=== PATIENT | female | born 1970 | race Caucasian/White ===

== ENCOUNTER → 2017-11-13 13:59 | Outpatient (CLI) | payer MEDICAID, SELFPAY ==
--- NOTE | 2017-11-13 14:03 | XR_ITS ---
XR foot LT min 3V Ordering Physician: Cheryl Molina Patient Age: 47 years: Female HISTORY: ITS.REASON: fall Fell in September, with persistent pain swelling at left foot. Fr TECHNIQUE: 3 view left foot COMPARISON : September 2012 left foot study, with Fiberglas splint in place. Also previous study from August 2012 utilized FINDINGS No acute fracture or findings at the left foot seen today. . Toes, metatarsals and tarsals intact. Adequate plantar arch Minimal spurring at insertion of the Achilles tendon with only scant early developing at the plantar aspect calcaneus IMPRESSION: No acute fracture left foot . No dislocation/subluxation..
--- NOTE | 2017-11-13 14:03 | XR_ITS ---
XR clavicle LT, XR shoulder LT min 2V Ordering Physician: Cheryl Molina Patient Age: 47 years: Female HISTORY: ITS.REASON: fall TECHNIQUE: Left clavicle 2 views; left shoulder 3 views COMPARISON :Plain films 2017 LEFT CLAVICLE The left clavicle is intact with no fracture evident. Overall grossly Satisfactory relationships at the medial clavicle and sternoclavicular joint but no displacement. No clavicular fracture. Mild degenerative changes AC joint. LEFT SHOULDER no fracture nor dislocation. The glenohumeral joint is intact with head and neck intact. Scant degenerative changes AC joint. There is some mild subchondral cystic changes towards the tip of the distal clavicle reflecting such. Lung apex and left upper ribs clear. IMPRESSION: No fracture or displacement at Left Shoulder NOR Left Clavicle..
== END ==
PROVIDERS: PCP Emergency Medicine; Visit Provider Nurse Practitioner Family
DX: M25.512 Pain in left shoulder (principal); M79.672 Pain in left foot; W19.XXXA Unspecified fall, initial encounter
CPT/HCPCS: 73000; 73030; 73630

== ENCOUNTER → 2017-12-13 15:28 | Outpatient (POV) | payer MEDICAID, SELFPAY | PROVIDERS: Family Provider Emergency Medicine; PCP Emergency Medicine | DX: Z00.00 Encounter for general adult medical examination without abnormal findings (principal) ==

== ENCOUNTER → 2017-12-25 13:37 | Outpatient (POV) | payer MEDICAID, SELFPAY ==
[2017-12-25 13:45] VITALS: BP 141/80; PULSE 88; RESP 18; TEMP 36.6; O2SAT 99; BMI 26.6
--- NOTE | 2017-12-25 13:55 | HMH.PAINSOAP ---
[facility] Pain Management SOAP Note Subjective:: Patient is a pleasant 47-year-old white female who presents today to discuss her back pain. Patient has had lumbar epidural steroid injections in the past with good relief. Patient was going to get a left SI joint injection however we were unable to do that. Patient is still interested in getting SI joint injections. Patient is currently taking Flexeril 10 mg 1 p.o. 3 times daily. Patient would like to have an evaluation of potentially MS. Patient states she has a strong family history of this. Patient symptoms include falls, blurred vision at times, tremors, and muscle spasms. ROS General: no recent weight change, no fever, no sleep disturbances Respiratory: no cough, no shortness of air, no recurring pulmonary infections Cardiovascular/Peripheral Vascular: No chest pain, No palpitations, no edema, no shortness of breath. Gastrointestinal: no incontinence, normal bowel movements reported Genitourinary: no incontinence Musculoskeletal: Back pain, bilateral SI joint pain Psychiatric: normal mood/ affect Neurological: Weakness in bilateral lower extremities at times, [denies balance issues] Objective:: Physical Exam General: Alert and oriented x3, no acute distress, pleasant and cooperative, [on room air] Lungs: Resps E/U, Symmetrical chest expansion, Eyes: PERRL Musculoskeletal: Flexion and extension of lumbar spine somewhat guarded secondary to pain, deep tendon reflexes normal, strength in upper and lower extremities [5/5], slightly antalgic gait noted, positive Joe's bilaterally, extreme point tenderness over bilateral SI joints Neurological: speech clear, family literacy coordinator equal, no gross sensory deficits Assessment:: Sacroiliitis, degenerative disc disease of the lumbar spine Plan:: We will plan bilateral SI joint injections. I believe given the efficacy of previous injections that this would be helpful. We will also find someone to evaluate her for potential MS. Patient has tried and failed physical therapy, anti-inflammatories, medications. Patient is also on Flexeril 10 mg 1 p.o. 3 times daily. I will follow-up with this patient after her injections. This note was dictated using voice recognition software and may contain errors or omissions
--- NOTE | 2017-12-25 13:58 | P.CONS_ITS ---
[facility] Pain Management SOAP Note Subjective:: Patient is a pleasant 47-year-old white female who presents today to discuss her back pain. Patient has had lumbar epidural steroid injections in the past with good relief. Patient was going to get a left SI joint injection however we were unable to do that. Patient is still interested in getting SI joint injections. Patient is currently taking Flexeril 10 mg 1 p.o. 3 times daily. Patient would like to have an evaluation of potentially MS. Patient states she has a strong family history of this. Patient symptoms include falls, blurred vision at times, tremors, and muscle spasms. ROS General: no recent weight change, no fever, no sleep disturbances Respiratory: no cough, no shortness of air, no recurring pulmonary infections Cardiovascular/Peripheral Vascular: No chest pain, No palpitations, no edema, no shortness of breath. Gastrointestinal: no incontinence, normal bowel movements reported Genitourinary: no incontinence Musculoskeletal: Back pain, bilateral SI joint pain Psychiatric: normal mood/ affect Neurological: Weakness in bilateral lower extremities at times, [denies balance issues] Objective:: Physical Exam General: Alert and oriented x3, no acute distress, pleasant and cooperative, [ on room air] Lungs: Resps E/U, Symmetrical chest expansion, Eyes: PERRL Musculoskeletal: Flexion and extension of lumbar spine somewhat guarded secondary to pain, deep tendon reflexes normal, strength in upper and lower extremities [5/5], slightly antalgic gait noted, positive Joe's bilaterally, extreme point tenderness over bilateral SI joints Neurological: speech clear, cogeneration technician equal, no gross sensory deficits Assessment:: Sacroiliitis, degenerative disc disease of the lumbar spine Plan:: We will plan bilateral SI joint injections. I believe given the efficacy of previous injections that this would be helpful. We will also find someone to evaluate her for potential MS. Patient has tried and failed physical therapy, anti-inflammatories, medications. Patient is also on Flexeril 10 mg 1 p.o. 3 times daily. I will follow-up with this patient after her injections. This note was dictated using voice recognition software and may contain errors or omissions
--- NOTE | 2017-12-26 13:08 | PC.PHONENOTE ---
12/25/17-called in Rx for Flexeril 10mg TID with 1 refill to pt's pharmacy
== END ==
PROVIDERS: Family Provider Emergency Medicine; PCP Emergency Medicine; Visit Provider Clinical Nurse Specialist Family Health
DX: M46.1 Sacroiliitis, not elsewhere classified (principal)
CPT/HCPCS: 99212

== ENCOUNTER 2017-12-28 15:00 | Outpatient (RCR) | payer MEDICAID, SELFPAY ==
--- NOTE | 2017-12-01 14:42 | HMH.PTOPEV ---
Rehab Outpatient Evaluation Rehab OP Evaluation Start: 12/01/17 14:27 Freq: Status: Active Protocol: Document 12/01/17 14:27 RMANDIL (Rec: 12[facility]01/17 14:[id number] Electronically Signed By Agueda Grimes OT 12/01/17 14:27 Outpatient Therapy Subjective History Subjective History Pt is a 47 year old female who reports to therapy for initial evaluation to Left shoulder. Pt reports she fell off of her counter top while she was taking down nadeem lights. Pt landed on her left shoulder and has had pain, decreased AROM, and decreased strength since the accident. After completing the ealuation , pt does demonstrate with a decline in functional ability of Left shoulder such as decreased AROM/Strength. Pt was given HEP of pulleys in flexion/abduction to begin and will continue to be seen twice a week to address these deficits. Chief Complaint Pain Stiff Clicks Symptom Type Ache Throb Sharp Dull Burning Shooting Symptoms Relieved By Nothing Symptoms Aggravated By Physical Activity Lifting Prior Functional Limitations None Current Functional Limitations Reaching Lifting Housework Dressing Driving Sleeping Recreation Activity Symptom Description Constant and Continuous Level of pain today (0-10) 3 Pain scale - at its best (0-10) 3 Pain scale - at its worst (0-10) 10 Shoulder/Elbow Eval Shoulder Objective Measurements Palpation Tenderness tenderness shoulder exam standard left tenderness over the bicipital tendon left shoulder exam standard tenderness over the SA bursa shoulder left exam standard Shoulder Palpation Findings Tenderness Posture Shoulder Posture Sitting Position (L) Rounded (R) Rounded
== END 2017-12-28 15:01 | disposition home or self-care (01) ==
LOC: OT 15:00
PROVIDERS: Family Provider Emergency Medicine; PCP Emergency Medicine; Visit Provider Emergency Medicine
DX: M25.512 Pain in left shoulder (principal)
CPT/HCPCS: 97014; 97110; 97140; 97165; G0283

== ENCOUNTER → 2018-01-02 16:03 | Outpatient (REF) | payer MEDICAID, SELFPAY ==
[2018-01-02 18:45] LABS: Basophils # 0.1 K/mm3 (0-0.2); Basophils % 0.6 % (0.1-2.0); Eosinophils # 0.2 K/mm3 (0.0-0.4); Eosinophils % 1.9 % (0.1-12.0); Hematocrit 48.9 % (37.0-47.0); Hemoglobin 15.7 g/dL (12.2-16.2); Lymphocytes # 2.4 K/mm3 (0.7-4.5); Lymphocytes % 21.3 K/mm3 (10-50); Mean Corpuscular HGB Conc 32.2 g/dL (31.8-35.4); Mean Corpuscular Hemoglobin 32.2 pg (27.0-31.2); Mean Platelet Volume 9.4 fl (7.4-10.4); Monocytes # 0.4 K/mm3 (0.1-1.0); Monocytes % 3.5 % (1.7-9.3); Neutrophils # 8.3 K/mm3 (1.8-7.8); Neutrophils % 72.8 % (37.0-80.0); Platelet Count 241 K/mm3 (142-424); Red Blood Count 4.89 M/mm3 (4.20-5.40); Red Cell Distribution Width 13.4 % (11.5-17.5); White Blood Count 11.4 K/mm3 (4.8-10.8)
[2018-01-02 19:36] LABS: Hemoglobin A1C 5.9 % (0.0-7.0)
[2018-01-02 19:37] LABS: Amphetamine/Metha Screen,Urine Negative ng/mL (<1000); Barbiturates Screen,Urine Negative ng/mL (<200); Benzodiazepines Screen,Urine Negative ng/mL (200); Cannabinoid Screen,Urine Negative ng/mL (<50); Cocaine Screen,Urine Negative ng/g (<300); Methadone Screen,Urine Negative ng/mL (<300); Opiate Screen,Urine Negative ng/mL (<300); Phencyclidine Screen,Urine Negative ng/mL (<25)
[2018-01-02 19:46] LABS: Alanine Aminotransferase 19 U/L (12-78); Albumin Level 4.7 gm/dL (3.4-5.0); Albumin/Globulin Ratio 1.5 (1.1-1.8); Alkaline Phosphatase 84 U/L (46-116); Anion Gap 17.1 mEq/L (5-15); Aspartate Amino Transferase 15 U/L (15-37); Bilirubin,Total 0.6 mg/dL (0.2-1.0); Blood Urea Nitrogen 17 mg/dL (7-18); Calcium 9.5 mg/dL (8.5-10.1); Carbon Dioxide 26 mmol/L (21.0-32.0); Chloride 98 mmol/L (98-107); Chol/HDL Ratio 7.1 (1-3.5); Cholesterol 228 mg/dL (140-200); Creatinine,Serum 1.06 mg/dL (0.55-1.02); Estimated Glomerular Filt Rate 56 ml/min (>60); GFR (African American) 68 ML/MIN (>60); Globulin 3.2 gm/dl (1.3-3.2); Glucose 84 mg/dL (74-106); HDL Cholesterol 32 mg/dL (29-89); Potassium 4.1 mmoL/L (3.5-5.1); Sodium 137 mmol/L (136-145); T4 (Thyroxine) 8.2 ug/dl (4.7-13.3); Thyroid Stimulating Hormone 2.37 uIU/ml (0.358-3.740); Total Protein,Serum 7.9 gm/dL (6.4-8.2)
[2018-01-02 19:48] LABS: Triglycerides 408 mg/dL (30-200)
[2018-01-05 10:43] LABS: Vitamin D 25 Hydroxy 21.1 ng/mL (30.0-100.0)
[2018-01-05 10:45] LABS: Microalbumin, Urine <3.0 ug/mL (Not Estab.)
== END ==
LOC: LAB 16:03
PROVIDERS: Visit Provider Physician Assistant
DX: E11.9 Type 2 diabetes mellitus without complications (principal); E78.5 Hyperlipidemia, unspecified; Z79.899 Other long term (current) drug therapy
CPT/HCPCS: 80053; 80061; 80305; 82043; 82652; 83036; 84436; 84443; 85025

== ENCOUNTER → 2018-01-19 09:13 | Outpatient (CLI) | payer MEDICAID, SELFPAY ==
--- NOTE | 2018-01-19 09:15 | MR_ITS ---
MR shoulder LT wo con HISTORY: Left shoulder pain with limited range of motion ITS.REASON: Pain left shoulder following injury 09/19/17 ORDERING PHYSICIAN: LESA Degroot PATIENT AGE: 47 years COMPARISON: 11/13/2017 TECHNIQUE: Standard multiplanar multiecho sequences are performed without contrast. FINDINGS: There are prominent hypertrophic changes involving the acromioclavicular joint with subacromial stenosis. Increased T2 signal involves the distal aspect of the acromion and the clavicle consistent with underlying bone marrow edema. There is impingement upon the superior aspect of the musculotendinous junction of the supraspinatus muscle and tendon with indentation of that structure by the acromioclavicular arthropathy. There is slight increased T2 signal with mild thickening of the supraspinatus tendon consistent with tendinopathy/tendinosis. No obvious tear of the supraspinatus tendon. The infraspinatus tendon, subscapularis, and teres minor tendons appear intact. The bicipital tendon is in place. No obvious labral tear. No joint effusion IMPRESSION: 1. No evidence of rotator cuff tear. 2. Acromioclavicular arthropathy with subacromial stenosis within pain upon the musculotendinous junction of the supraspinatus muscle and tendon along with tendinopathy/tendinosis of the supraspinatus tendon. 3. Bone marrow edema of the distal aspect of the acromium and the distal clavicle
== END ==
PROVIDERS: Family Provider Emergency Medicine; PCP Emergency Medicine; Visit Provider Physician Assistant
DX: M25.512 Pain in left shoulder (principal)
CPT/HCPCS: 73221

== ENCOUNTER → 2018-02-05 10:18 | Outpatient (POV) | payer MEDICAID, SELFPAY ==
[2018-02-05 10:24] VITALS: BP 150/84; PULSE 100; RESP 18; O2SAT 98; BMI 26.2
--- NOTE | 2018-02-05 11:27 | HMH.PAINSOAP ---
[facility] Pain Management SOAP Note Subjective:: Patient is a pleasant 47-year-old white female who presents today for follow-up after SI joint injections. Patient states she is doing very well in regards to her SI joint pain. However she did bend over and grab a broom and have one instance of sharp shooting pain in her back. She states that she has not had any electricity in her house for over a month now. Patient is interested in nerve stimulation and would like to discuss this. Patient does have a neurology appointment and an orthopedic appointment in the next month. I gave the patient information on neuro stimulation and we will address this at her 2 month follow-up. ROS General: no recent weight change, no fever, no sleep disturbances Respiratory: no cough, no shortness of air, no recurring pulmonary infections Cardiovascular/Peripheral Vascular: No chest pain, No palpitations, no edema, no shortness of breath. Gastrointestinal: no incontinence, normal bowel movements reported Genitourinary: no incontinence Musculoskeletal: Back pain, bilateral SI joint pain Psychiatric: normal mood/ affect Neurological: [denies weakness in extremities], [denies balance issues] Objective:: Physical Exam General: Alert and oriented x3, no acute distress, pleasant and cooperative, [on room air] Lungs: Resps E/U, Symmetrical chest expansion, Eyes: PERRL Musculoskeletal: Flexion and extension of lumbar spine somewhat guarded secondary to pain, deep tendon reflexes normal, strength in upper and lower extremities [5/5], slightly antalgic gait noted Neurological: speech clear, pulper equal, no gross sensory deficits Assessment:: Sacroiliitis, degenerative disc disease of the lumbar spine Plan:: We will follow-up with this patient in 2 months and gave her information in regards to nerve stimulation. Patient is to write down any questions she may have. We will address this at her next visit. Patient is going to be seeing neurology and orthopedics prior to her next visit. We will reassess her after those visits. This note was dictated using voice recognition software and may contain errors or omissions
--- NOTE | 2018-02-05 11:32 | P.CONS_ITS ---
[facility] Pain Management SOAP Note Subjective:: Patient is a pleasant 47-year-old white female who presents today for follow-up after SI joint injections. Patient states she is doing very well in regards to her SI joint pain. However she did bend over and grab a broom and have one instance of sharp shooting pain in her back. She states that she has not had any electricity in her house for over a month now. Patient is interested in nerve stimulation and would like to discuss this. Patient does have a neurology appointment and an orthopedic appointment in the next month. I gave the patient information on neuro stimulation and we will address this at her 2 month follow-up. ROS General: no recent weight change, no fever, no sleep disturbances Respiratory: no cough, no shortness of air, no recurring pulmonary infections Cardiovascular/Peripheral Vascular: No chest pain, No palpitations, no edema, no shortness of breath. Gastrointestinal: no incontinence, normal bowel movements reported Genitourinary: no incontinence Musculoskeletal: Back pain, bilateral SI joint pain Psychiatric: normal mood/ affect Neurological: [denies weakness in extremities], [denies balance issues] Objective:: Physical Exam General: Alert and oriented x3, no acute distress, pleasant and cooperative, [ on room air] Lungs: Resps E/U, Symmetrical chest expansion, Eyes: PERRL Musculoskeletal: Flexion and extension of lumbar spine somewhat guarded secondary to pain, deep tendon reflexes normal, strength in upper and lower extremities [5/5], slightly antalgic gait noted Neurological: speech clear, arborist equal, no gross sensory deficits Assessment:: Sacroiliitis, degenerative disc disease of the lumbar spine Plan:: We will follow-up with this patient in 2 months and gave her information in regards to nerve stimulation. Patient is to write down any questions she may have. We will address this at her next visit. Patient is going to be seeing neurology and orthopedics prior to her next visit. We will reassess her after those visits. This note was dictated using voice recognition software and may contain errors or omissions
== END ==
PROVIDERS: Family Provider Emergency Medicine; PCP Emergency Medicine; Visit Provider Clinical Nurse Specialist Family Health
DX: M46.1 Sacroiliitis, not elsewhere classified (principal)
CPT/HCPCS: 99212

== ENCOUNTER → 2018-03-22 12:47 | Outpatient (CLI) | payer MEDICAID, SELFPAY ==
--- NOTE | 2018-03-22 12:50 | XR_ITS ---
XR shoulder RT min 2V HISTORY: ITS.REASON: rt shoulder pain ORDERING PHYSICIAN: Parish Golden MD PATIENT AGE: 47 years Comparison: None FINDINGS: No fracture or dislocation. No lytic or blastic change. There is normal mineralization. The joint spaces are well-preserved. No significant degenerative/arthritic changes. No erosive changes evident. IMPRESSION: Negative, no acute finding
== END ==
PROVIDERS: PCP Emergency Medicine; Visit Provider Orthopaedic Surgery
DX: M25.511 Pain in right shoulder (principal)
CPT/HCPCS: 73030

== ENCOUNTER → 2018-03-26 12:16 | Outpatient (CLI) | payer MEDICAID, SELFPAY ==
[2018-03-26 12:33] LABS: Blood Urea Nitrogen 18 mg/dL (7-18); Creatinine,Serum 1.33 mg/dL (0.55-1.02); Estimated Glomerular Filt Rate 43 ml/min (>60); GFR (African American) 52 ML/MIN (>60)
--- NOTE | 2018-03-26 12:40 | MR_ITS ---
MR head/brain wo con HISTORY: Severe headache ITS.REASON: migraine, movement disorder ORDERING PHYSICIAN: Manuela Dobbins MD PATIENT AGE: 47 years Comparison: 07/18/2016 TECHNIQUE: Standard multiplanar multiecho sequences are performed without contrast. FINDINGS: No midline shift, mass effect, intracranial hemorrhage, or hydrocephalus is evident. No evidence of acute infarction. The cerebellopontine angles, cerebellum, and brainstem have an unremarkable appearance. No pituitary mass. The optic chiasm is unremarkable. There is mild cerebellar tonsillar ectopia of 3 to 4 mm. There are scant periventricular and subcortical T2 white matter hyperintensities in the frontal lobes which are nonspecific and could be seen with ischemic gliotic foci or migraine headache. These are not significantly changed. Hippocampal structures are unremarkable in the temporal heart is are symmetric No large aneurysms are evident. Smaller aneurysms cannot be seen with this technique and may be better evaluated with cranial MRI if clinically warranted. There is a small amount fluid within left mastoid sinus. There is moderate rightward nasal septal deviation. IMPRESSION: 1. No acute intracranial findings with no significant change from 07/18/2016. 2. There are scant periventricular T2 white matter hyperintensities. These are nonspecific and could be seen with ischemic gliotic change or may also be seen with migraine headache. Demyelinating process felt to be less likely due to the imaging characteristics. 3. Minimal cerebellar tonsillar ectopia
[2018-03-27 15:23] LABS: Folate 6.1 ng/mL (>3.0); Vitamin B12 262 pg/mL (232-1245)
== END ==
PROVIDERS: Family Provider Emergency Medicine; PCP Emergency Medicine; Visit Provider Specialist
DX: G43.019 Migraine without aura, intractable, without status migrainosus (principal); G25.9 Extrapyramidal and movement disorder, unspecified; G43.709 Chronic migraine without aura, not intractable, without status migrainosus; G47.33 Obstructive sleep apnea (adult) (pediatric)
CPT/HCPCS: 36415; 70551; 82565; 82607; 82746; 84520

== ENCOUNTER → 2018-04-16 15:12 | Outpatient (POV) | payer MEDICAID, SELFPAY ==
[2018-04-16 15:32] VITALS: BP 154/87; PULSE 113; RESP 18; O2SAT 98; BMI 26.5
--- NOTE | 2018-04-16 15:50 | HMH.PAINSOAP ---
[facility] Pain Management SOAP Note Subjective:: Patient is a pleasant 47-year-old white female who presents today for follow-up. At last visit patient and I discussed neuro stimulation. Patient is interested in this. Patient has not had a recent MRI I believe that that would be beneficial. Patient is having increased leg pain. Patient rates her pain a 6 out of 10 today. Mostly in her low back and down her legs. I answered the patient's questions in regards to neuro stimulation. Patient is going to neurology for her migraines. ROS General: no recent weight change, no fever, no sleep disturbances Respiratory: no cough, no shortness of air, no recurring pulmonary infections Cardiovascular/Peripheral Vascular: No chest pain, No palpitations, no edema, no shortness of breath. Gastrointestinal: no incontinence, normal bowel movements reported Genitourinary: no incontinence Musculoskeletal: Back pain leg pain Psychiatric: normal mood/ affect Neurological: [denies weakness in extremities], [denies balance issues] Objective:: Physical Exam General: Alert and oriented x3, no acute distress, pleasant and cooperative, [on room air] Lungs: Resps E/U, Symmetrical chest expansion, Eyes: PERRL Musculoskeletal: Flexion and extension of lumbar spine somewhat guarded secondary to pain, deep tendon reflexes normal, strength in upper and lower extremities [5/5], [abnormal gait noted] Neurological: speech clear, supervisor burling and joining equal, no gross sensory deficits Assessment:: Degenerative disc disease of the lumbar spine with lumbar radiculopathy Plan:: We will order an MRI of the lumbar spine to determine any worsening pathology. The patient is going to continue to think about neuro stimulation I do believe that it would be beneficial for her pain management. I will follow-up with the patient after her MRI. This note was dictated using voice recognition software and may contain errors or omissions
== END ==
PROVIDERS: Family Provider Emergency Medicine; PCP Emergency Medicine; Visit Provider Clinical Nurse Specialist Family Health
DX: M51.16 Intervertebral disc disorders with radiculopathy, lumbar region (principal)
CPT/HCPCS: 99212

== ENCOUNTER → 2018-04-27 10:45 | Outpatient (REF) | payer MEDICAID, SELFPAY ==
[2018-04-27 14:07] LABS: Amphetamine/Metha Screen,Urine Negative ng/mL (<1000); Barbiturates Screen,Urine Negative ng/mL (<200); Benzodiazepines Screen,Urine Positive ng/mL (<200); Cannabinoid Screen,Urine Negative ng/mL (<50); Cocaine Screen,Urine Negative ng/mL (<300); Methadone Screen,Urine Negative ng/mL (<300); Opiate Screen,Urine Negative ng/mL (<300); Phencyclidine Screen,Urine Negative ng/mL (<25)
== END ==
LOC: LAB 10:45
PROVIDERS: Visit Provider Nurse Practitioner Family
DX: Z79.899 Other long term (current) drug therapy (principal)
CPT/HCPCS: 80305

== ENCOUNTER → 2018-12-21 08:12 | Outpatient (CLI) | payer MEDICAID, SELFPAY ==
--- NOTE | 2018-12-21 08:15 | MM_ITS ---
MM Dig screening mamm BI w/CAD ORDERING PHYSICIAN : Charo Grimes PATIENT AGE: 48 years GENDER: Female COMPARISON: June 20172015 INDICATION: ITS.REASON: SCREENING TECHNIQUE: Standard CC and MLO images were obtained. R2 CAD reviewed. FINDINGS: Low-density breastGeneralized fatty replacement. No densities or areas of significant concern. No suspicious calcifications. Bilateral follow-up in one year IMPRESSION: ========= Stable negative bilateral mammogram Low density breast with generalized fatty replacement BI-RADS Category: 1 Negative RECOMMENDED FOLLOW-UP: 1YR 1 YEAR FOLLOW-UP (A letter has been sent to the patient regarding results of the study.)
[2018-12-22 18:11] LABS: Estradiol 48.3 pg/mL (.); FSH 35.3 mIU/mL (.); LH 33.3 mIU/mL (.)
== END ==
PROVIDERS: Nurse Practitioner Obstetrics & Gynecology; PCP Nurse Practitioner Family; Visit Provider Nurse Practitioner Family
DX: Z12.31 Encounter for screening mammogram for malignant neoplasm of breast (principal)
CPT/HCPCS: 36415; 77067; 82670; 83001; 83002

== ENCOUNTER → 2018-12-21 10:45 | Outpatient (CLI) | payer MEDICAID, SELFPAY | PROVIDERS: Visit Provider Nurse Practitioner Obstetrics & Gynecology | DX: N95.0 Postmenopausal bleeding (principal) | CPT/HCPCS: 36415; 82670; 83001; 83002 ==

== ENCOUNTER → 2019-07-02 10:54 | Outpatient (CLI) | payer MEDICAID, SELFPAY ==
--- NOTE | 2019-07-02 11:01 | MR_ITS ---
PROCEDURE: MR LUMBAR SPINE WO CON CLINICAL INDICATION: LUMBAR RADICULOPATHY Left leg pain numbness and tingling COMPARISON: LS5 LUMBAR SPINE 5 VIEWS from 11/19/2014 ABDPELW/O CT ABD PELVIS W/O CONTRAST from 07/20/2015 BRAINWO MR head/brain wo con from 03/26/2018 TECHNIQUE: Standard multiplanar multiecho sequences are performed without contrast. 3-D MIP and myelographic images are also rendered and reviewed FINDINGS: Normal alignment. The spinal cord ends at the L1-L2 level. L1-L2 and L2-L3 have an unremarkable appearance. L3-L4: Minimal facet and ligamentum hypertrophy. L4-5: Minimal facet and ligamentum hypertrophy. L5-S1: There is minimal bulging disc slightly eccentric toward the right with minimal right paracentral disc protrusion without impingement. Incidental note made of a limbus vertebra involving the anterior superior aspect of L5 vertebral body. There is mild facet and ligamentum hypertrophy No extruded herniated disc or canal stenosis. IMPRESSION: 1. Mild degenerative changes with mild facet ligamentum hypertrophy. 2. Minimal bulging disc with minimal right paracentral disc protrusion at L5-S1 without impingement 3. No canal stenosis or extruded herniated disc. Dictated by: Prabhjot Naylor MD 07/04/2019 05:22 Electronically signed by Prabhjot Naylor MD in [place] 07/04/2019 05:22
== END ==
PROVIDERS: PCP Nurse Practitioner Family; Visit Provider Nurse Practitioner Family
DX: M54.16 Radiculopathy, lumbar region (principal)
CPT/HCPCS: 72148; 76376

== ENCOUNTER → 2020-04-23 13:59 | Outpatient (CLI) | payer MEDICAID, SELFPAY | PROVIDERS: PCP Nurse Practitioner Family; Visit Provider Internal Medicine Adolescent Medicine | DX: Z03.818 Encounter for observation for suspected exposure to other biological agents ruled out (principal) | CPT/HCPCS: U0003 ==

== ENCOUNTER → 2020-05-28 12:22 | Outpatient (CLI) | payer MEDICAID, SELFPAY ==
--- NOTE | 2020-05-28 12:23 | MM_ITS ---
PROCEDURE: MM DIG SCREENING MAMM BI W/CAD Referring Doctor: Fitz Logan Patient Age:49Y CLINICAL INDICATION: Routine screening mammogram. No hormones. Ayde menopausal. Family history: Paternal aunt with breast cancer COMPARISON: MG DIG MAMMO BILAT SCREENING from 01/21/2013 MG DMSB DIG MAMM-SCREEN JESSICA from 07/02/2015 MG DMSB DIG MAMM-SCREEN JESSICA from 07/13/2016 MG DMSB DIG MAMM-SCREEN JESSICA W/CAD from 07/13/2017 MG SCBI MM Dig screening mamm BI w/CAD from 12/21/2018 TECHNIQUE: Standard CC and MLO images were obtained. R2 CAD reviewed. Bilateral digital breast tomosynthesis included. FINDINGS: The low-density breast; diffuse fatty replacement No dominant mass or suspicious calcifications either breast. No change since prior studies.. Tomosynthesis images unremarkable bilateral. No new areas of concern Bilateral follow-up 1 year recommended IMPRESSION: Stable breast bilaterally. Low-density breast fatty replacement with no areas concern. Bilateral follow-up 1 year BI-RAD Category: 1 Negative FOLLOW-UP: 1YR 1 Year Follow-up thin tract (A letter has been sent to the patient regarding results of the study.) Dictated by: Robert Watson MD 06/01/2020 13:58 Robert Watson MD in [place] 06/01/2020 13:58
== END ==
PROVIDERS: PCP Nurse Practitioner Family; Visit Provider Nurse Practitioner Obstetrics & Gynecology
DX: Z12.31 Encounter for screening mammogram for malignant neoplasm of breast (principal)
CPT/HCPCS: 77063; 77067

== ENCOUNTER → 2020-06-05 13:47 | Outpatient (CLI) | payer MEDICAID, SELFPAY ==
--- NOTE | 2020-06-05 13:52 | US_ITS ---
PROCEDURE: US TRANSVAGINAL CLINICAL INDICATION: check thickness wellness of her endometrium Abnormal uterine bleeding COMPARISON: US PTV US PELVIS-TRANSVAGINAL ONLY from 07/02/2015 FINDINGS: UTERUS: 4cm x 3cmx 2cm with a combined endometrial thickness of 2.1mm LEFT OVARY: [id number] with a volume of 2.9ml. RIGHT OVARY: [id number] with a volume of 1.5ml. The uterus is somewhat small at 4.4 x 2.3 x 2.9 cm. No uterine mass evident. Combined endometrial thickness is 2 mm. The ovaries have an unremarkable appearance. No cul-de-sac fluid evident. IMPRESSION: Negative pelvic ultrasound Dictated by: Prabhjot Naylor MD 06/05/2020 16:15 Prabhjot Naylor MD in [place] 06/05/2020 16:15
== END ==
PROVIDERS: PCP Nurse Practitioner Family; Visit Provider Nurse Practitioner Obstetrics & Gynecology
DX: N85.2 Hypertrophy of uterus (principal)
CPT/HCPCS: 76830

== ENCOUNTER 2024-05-29 13:19 | Emergency (ER) | payer OTHER, SELFPAY ==
[2024-05-29 13:29] VITALS: BP 140/83; PULSE 94; RESP 20; TEMP 36.6; O2SAT 97; BMI 27.4
--- NOTE | 2024-05-29 13:29 | XR_ITS ---
FINAL REPORT CLINICAL HISTORY: hit counter top FINDINGS: Left hand Three views were obtained. There is no acute fracture or dislocation. The joint spaces appear normal. No soft tissue abnormality is identified. IMPRESSION: No acute process. Reviewed, Interpreted and Dictated by Taiwo Mina III, MD Transcribed by Camilla Keene Authenticated and . [facility]
--- NOTE | 2024-05-29 14:16 | EXP.UTC ---
Discharge Plan Disposition Patient Disposition: Home, Self-Care Condition: Good Prescriptions Prescriptions: No Action losartan 50 mg tablet 50 mg PO DAILY Patient Comments: TAKE 1 TABLET BY MOUTH EVERY DAY DIRECTED metoprolol succinate 100 mg tablet extended release 24 hr 100 mg PO DAILY Patient Comments: TAKE 1 TABLET BY MOUTH EVERY DAY clopidogrel 75 mg tablet 75 mg PO DAILY Patient Comments: TAKE 1 TABLET BY MOUTH EVERY DAY clopidogrel 75 mg tablet 75 mg PO DAILY Patient Comments: TAKE 1 TABLET BY MOUTH EVERY DAY (DME) OneTouch Ultra Test Strip MISCELLANEOUS Patient Comments: USE TO CHECH BLOOD SUGAR TWICE DAILY omeprazole 40 mg capsule,delayed release(DR/EC) 40 mg PO DAILY Patient Comments: TAKE 1 CAPSULE BY MOUTH EVERY DAY IN THE MORNING FOR 90 DAYS rosuvastatin 40 mg tablet 40 mg PO DAILY Patient Comments: TAKE 1 TABLET BY MOUTH EVERY DAY DIRECTED (DME) pen needle, diabetic [BD Ultra-Fine Mini Pen Needle] 31 gauge x 3/16 needle MISCELLANEOUS Patient Comments: USE DIRECTED fenofibrate nanocrystallized 145 mg tablet 145 mg PO DAILY Patient Comments: TAKE 1 TABLET BY MOUTH EVERY DAY Jardiance 25 mg tablet 25 mg PO DAILY Patient Comments: TAKE 1 TABLET BY MOUTH EVERY DAY Referrals Follow up/Referrals: Charo Grimes APRN [Primary Care Provider] - See instructions Juan Haji DO [Staff Physician] - See instructions Activity Restrictions/Add. Instructions Additional Instructions/Restrictions: Rest the extremity, Wear the jocelyn wrap for compression, Elevate the extremity as tolerated while you are resting. Take ibuprofen or tylenol for pain. Follow up with Dr. Haji (orthopedics). I put in a referral but you need to call his office and schedule an appointment. Follow up with your regular doctor. GO TO THE ER FOR ANY WORSENING SYMPTOMS Clinical Impressions Clinical Impression: Contusion of left hand, Left hand pain Instructions Patient Instructions: DI for Hand Pain Print Language Print Language: Telugu Discharge ED Provider: Zechariah Mcfarland [facility] General Stated complaint: poss broken left thumb Mode of Arrival: Ambulatory Source of Information: Patient Time Seen by Provider: 05/29/24 14:00 Description of Symptoms (Recalled from Triage Doc. by RN): POSSIBLE LEFT THUMB BROKEN, SWOLLEN HEENT Symptoms (Recalled from RN notes): No Resp Symptoms (Recalled from RN notes): No Skin Symptoms (Recalled from RN notes): No MS Symptoms (Recalled from RN notes): Yes (LEFT THUMB SWOLLEN) Functional Status (Recalled from RN notes): WNL Related Data Home Medications ?Medication ?Instructions ?Recorded ?Confirmed blood sugar diagnostic (OneTouch 05/29/24 06/06/24 Ultra Test strips) clopidogrel 75 mg tablet 75 mg PO DAILY 05/29/24 06/06/24 clopidogrel 75 mg tablet 75 mg PO DAILY 05/29/24 06/06/24 empagliflozin 25 mg tablet 25 mg PO DAILY 05/29/24 06/06/24 (Jardiance) fenofibrate nanocrystallized 145 145 mg PO DAILY 05/29/24 06/06/24 mg tablet losartan 50 mg tablet 50 mg PO DAILY 05/29/24 06/06/24 metoprolol succinate 100 mg 100 mg PO DAILY 05/29/24 06/06/24 tablet,extended release 24 hr omeprazole 40 mg capsule,delayed 40 mg PO DAILY 05/29/24 06/06/24 release pen needle, diabetic 31 gauge x 05/29/24 06/06/24/16 (BD Ultra-Fine Mini Pen Needle) rosuvastatin 40 mg tablet 40 mg PO DAILY 05/29/24 06/06/24 Allergies Allergy/AdvReac Type Severity Reaction Status Date / Time adhesive tape Allergy Intermediate WELTS Verified 06/06/24 14:13 Worker's Comp Is this a Worker's Comp case?: No [facility] Disclaimer: The information contained in this section may have been updated after the patient was seen, as this information can be updated by other users. Medical History Heart attack History of left heart catheterization Vitamin D deficiency (~01/08/18) Asthma GERD (gastroesophageal reflux disease) Constipation Left shoulder pain Anxiety Surgical History Hx laparoscopic cholecystectomy Social History Smoking Status: Current every day smoker tobacco type: cigarettes packs per day: 1 alcohol intake: never counseling provided: none substance use type: denies use current occupational status: unemployed Travel in the last 8 weeks: None household members: spouse housing: house ROS Obtained: Yes All systems reviewed & no additional complaints except as documented Constitutional Constitutional: Denies chills and Denies fever(s) Eyes Eyes: Denies eye discharge ENT Ears, Nose, Mouth, and Throat: Denies dizziness, Denies otalgia and Denies sore throat Cardiovascular Cardiovascular: Denies chest pain Respiratory Respiratory: Denies shortness of breath, Denies chest congestion, Denies cough, Denies stridor and Denies wheezing Gastrointestinal Gastrointestingal: Denies nausea or vomiting Musculoskeletal Musculoskeletal: Reports system reviewed and no additional complaints, except as documented and Denies arthralgias Integumentary/Breasts Skin/Breast: Denies rash Neurologic Neurologic: Denies dizziness and Denies paresthesias Allergic/Immunologic Allergic/Immunologic: Denies wheezing Physical Exam General General appearance: alert and in no apparent distress Head Head exam: atraumatic, normocephalic and normal inspection Eye Eye exam: Present normal appearance, PERRL and EOMI ENT ENT exam: Present normal exam, normal oropharynx, mucous membranes moist, TM's normal bilaterally and normal external ear exam Neck Neck exam: Present normal inspection, full ROM and trachea midline; Absent meningismus or lymphadenopathy Chest Chest inspection: Present normal inspection and symmetric chest wall rise; Absent tenderness Respiratory Respiratory exam: Present normal lung sounds bilaterally; Absent respiratory distress Cardiovascular Cardiovascular exam: Present regular rate and normal rhythm; Absent JVD Abdominal Exam Abdominal exam: Present soft and normal bowel sounds; Absent distention, tenderness or guarding Extremities Exam Extremities exam: Present normal inspection, full ROM and normal capillary refill; Absent calf tenderness Back Exam Back exam: Present normal inspection; Absent tenderness Neurological Exam Neurological exam: Present alert and oriented X3 Psychiatric Psychiatric exam: Present normal affect and normal mood Skin Skin exam: Present warm, dry, intact and normal color Lymphatic Lymphatic Findings: no adenopathy Medical Decision Making Medical Records Medical records reviewed: No I reviewed the patient's medical records. Brendan Inquiry Pt receiving controlled substance: No Vital Signs: 05/29/24 13:29 Temperature 97.9 F Temperature Source Oral Pulse Rate [Left Brachial] 94 H Respiratory Rate 20 Blood Pressure [Left Arm] 140/83 Blood Pressure Mean [Left Arm] 102 02 Sat by Pulse Oximetry 97 Orders (Tests/Meds): ORDERS Category Date Time Status Hand XR left minimum 3 views [XR hand LT min 3V] Stat Exams 05/29/24 13:29 Taken
[2024-05-29 15:45] VITALS: BP 140/83; PULSE 94; RESP 20; TEMP 36.6; O2SAT 97
== END 2024-05-29 15:47 | disposition home or self-care (01) ==
PROVIDERS: Emergency Provider Nurse Practitioner Family; PCP Nurse Practitioner Family
DX: S60.222A Contusion of left hand, initial encounter (principal); M79.642 Pain in left hand; X58.XXXA Exposure to other specified factors, initial encounter
CPT/HCPCS: 73130; 99203; 99212; G0463